=== PATIENT | female | born 1950 | race Two or more races ===

== ENCOUNTER 2019-01-17 21:11 | Emergency (ER) | payer MEDICARE, OTHER ==
[~2019-01-17] VITALS: Ht 167.6 cm; Wt 67.0 kg
[2019-01-17 21:24] VITALS: BP 148/87
--- NOTE | 2019-01-17 21:45 | NUR ---
FIRST CONTACT WITH PT. PT STATES L EYE BLURRY VISIONxTODAY AND "BLACK SQUIGGLIES IN MY EYE." DENIES ANY MADISON OR VISION CHANGE IN R EYE. DENIES ANY RECENT TRAUMA TO EYE. PT DENIES ANY OTHER S/S AT THIS TIME. PT'S AT BEDSIDE. PT'S AOX4. RESPS EVEN AND UNLABORED.
[2019-01-17] MEDS ORDERED: FLUORESCEIN OPHTHALMIC 1 MG STRIP EACHEYE ONE (22:00)
--- NOTE | 2019-01-17 22:44 | NUR ---
EDMD AT BEDSIDE TO EXPLAIN ALL RESULTS.
--- NOTE | 2019-01-17 23:07 | NUR ---
PT GIVEN DC INSTRUCTIONS. PT AMB TO DC WITH STEADY GAIT. PT'S AOX4. RESPS EVEN AND UNLABORED. NO ACUTE DISTRESS AT DC.
== END 2019-01-17 23:08 | disposition home or self-care (01) ==
LOC: ED 23:02
DX: H53.8 Other visual disturbances (principal)
CPT/HCPCS: 99282